=== PATIENT | female | born 1975 | race Caucasian/White ===

== ENCOUNTER 2024-01-27 23:55 | Observation (INO) | payer OTHER, SELFPAY ==
[2024-01-27 18:36] VITALS: BP 123/79
--- NOTE | 2024-01-27 18:53 | ED.GENMED ---
History of Present Illness
General
Chief Complaint: Skin Problem
Source: patient
Exam Limitations: none
Time Seen by Provider: 01/27/24 18:43
Travel History
Have you had any contact with someone who has COVID-19?: No
Do you have any symptoms of coronavirus? Fever > 100 degrees, chills, cough, shortness of breath, sore throat, loss of taste or smell, muscle aches, or headache?: No
History of Present Illness
History of Present Illness:
This is a 48 year old female that comes in with c/o rectal abscess. Stes that she has had 4 rectal abscesses in the past but this time she feels that this is very high up as she can't even palpate it. States that she is having trouble going to the
bathroom and even when she sits down to urinate just relaxing the muscles she had pain. States that she has been running a fever and last night she was 102.9 and it came down to 100. States that her abdomen feels distended and she is nauseated.
States that she also has a headache. States that she had chills last night with the fever but was no shaking. Denies chest pain, SOB, vomiting, diarrhea, dizziness, urinary burning.
Past History
Past History
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
ED Past Surgical History: Orthopedic (Carpal tunnel), Tonsilectomy and Other (Lumpectomy)
Social History
Tobacco: Former smoker
Alcohol: Occasional
Personal:
Living: with family
Review of Systems
Review of Systems
All Other Systems: ROS reviewed and negative except as documented in HPI and ROS
Constitutional: Reports fever and chills
EENT: Reports no symptoms
Respiratory: Reports no symptoms; Denies cough or trouble breathing
Cardiac: Reports no symptoms; Denies chest pain
ABD/GI: Reports abdominal pain (Feels bloated), nausea and other (Rectal pain); Denies vomiting or diarrhea
: Reports no symptoms; Denies dysuria, frequency or urgency
Musculoskeletal: Reports no symptoms
Skin: Reports no symptoms
Neurological: Reports headache; Denies dizzy
Psychiatric: Reports no symptoms
Phy Exam
General Physical Exam
General Presentation: no apparent distress
General age: appears stated age
General Skin: warm and dry
General Habitus: normal
General Mental: alert
General Hydration: dry mucous membranes
ENT Exam
ENT Exam: TM's normal, pharynx normal and neck supple
Eye Exam
Eye Exam: EOMI
Cardiovascular Exam
Cardiovascular Exam: regular rate/rhythm, no edema, no murmur and normal peripheral pulses
Pulmonary Exam
Pulmonary Exam: lungs clear, no respiratory distress, no rales, chest non tender, no crackles, no rhonchi, no wheezing and no cough
Gastrointestinal Exam
Gastrointestinal Exam: normal bowel sounds, non tender, soft, no organomegaly, no pulsatile mass, non distended and other (Rectal exam shows external hemorrhoids. Some excoriation of the rectal area. )
Musculoskeletal Exam
Musculoskeletal Exam: full ROM and no edema
Skin Exam
Skin Exam: normal color, warm/dry, no rash and no petechia
Psychiatric Exam
Psychiatric Exam: normal mood/affect
Course
Orders/Labs/Results
Orders:
Orders
01/27/24 18:52
0.9% Sodium Chloride 1000 ml [Nss] 1,000 ml IV BOLUS
Iohexol [Omnipaque] See Protocol PO NOW STA
01/27/24 18:53
CT Abd/pel W Iv And Oral Contr Urgent
Comment:
Reason For Exam: Rectal pain, feels she has an abscess
Test Result ONCE
01/27/24 18:56
Ondansetron Injectable [Zofran] 4 mg IV NOW STA
01/27/24 19:06
Complete Blood Count/With Diff Urgent
Comprehensive Metabolic Panel Urgent
HCG, Serum Qualitative Screen Urgent
Lactic Acid Urgent
Blood Culture Q30M
BLAINE Source: Blood/Venous
Specimen Description:
Blood Culture Q30M
BLAINE Source: Blood/Venous
Specimen Description:
01/27/24 20:25
COVID-19 Antigen Urgent
Source: Nasal Swab
Influenza A+B Rapid Molecular Urgent
BLAINE Source: Nasal Swab
Specimen Description:
01/27/24 23:17
HYDROmorphone [Dilaudid] 0.5 mg IV NOW STA
Ondansetron Injectable [Zofran] 4 mg IV NOW STA
Zosyn 3.375 grams IVPB NOW Piperacillin/Tazo 3.375 Gram [Zosyn] 3.375 gram in 50 ml IV NOW
Abnormal Lab Results
01/27/24
19:06
Abs Immat Gran (auto) 0.1 H 10^3/uL
(0-0.05)
Absolute Neuts (auto) 9.0 H 10^3/uL
(1.4-6.5)
Absolute Lymphs (auto) 0.4 L 10^3/uL
(1.2-3.4)
Absolute Monos (auto) 0.9 H 10^3/uL
(0.1-0.6)
Neutrophils % 84.6 H %
(42.2-75.2)
Lymphocytes % 3.5 L %
(20.5-51.1)
Sodium 134 L mmol/L
(135-145)
Glucose 130 H mg/dl
(70-99)
AST 80 H U/L
(14-36)
ALT 75 H U/L
(0-35)
01/27/24 19:06
01/27/24 19:06
Glucose nonfasting. AST/ALT elevation. HCG negative, Lactic acid normal at 0.9, COVID negative, Influenza negative.
Vital Signs
Initial and Last Documented VS:
Initial Vital Signs
Temp Pulse Resp BP Pulse Ox
98.9 F 103 17 123/79 99
01/27/24 18:36 01/27/24 18:36 01/27/24 18:36 01/27/24 18:36 01/27/24 18:36
Last Documented Vital Signs
Temp Pulse Resp BP Pulse Ox
98.9 F 98 18 121/74 99
01/27/24 18:36 01/27/24 19:28 01/27/24 19:28 01/27/24 19:28 01/27/24 19:28
MDM/Problems Addressed
Differential Diagnosis Includes:
Rectal abscess, Colitis,
MDM/Problems Addressed:
This is a 48 year old female that comes in with c/o rectal abscess. States that she has had 4 rectal abscess in the past but she feels that this one is high up as she is unable to palpate anything.
Will get labs and CT scan. Give IV fluids.
Back into see patient. Explained that the CT shows there is a rectal abscess. Message sent to Dr Munson as there is no obvious abscess noted on the outside of the rectum.
Will admit patient to Dr. Munson. Patient to be kept NPO and given IV antibiotics. 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 Will medicate patient for pain.
Chronic conditions affecting care:
History of rectal abscess.
Acute Exacerbation and/or Progression of Chronic Illness:
Rectal abscess
*Radiology
Radiology exam reviewed: radiology read reviewed (CT- There is right posterolateral low density perirectal fluid collection consistent with absces measuring approximately 3.7 X 2.8X 4.0cm in AP, transverse and craniocaudal dimensions respectively
and associated with moderate right perirectal and presacral edema/inflammatory changes. There is large) and other (CT cont- Volume of feces throughout the colon suggesting constipation. )
*Pulse Oximetry
Patient hypoxic: no
*EKG
Interpreted by ED Provider?: NA
Rate: EKG- N/A
*Treating Plant Operator Interpretation
Rate: Treating Plant Operator- N/A
*Critical Care Note
Total Time (30-74mins, 75-104mins- exclusive of procedures): Not Applicable
ED Attending Note
-
Portions of this chart may have been created with voice recognition software.� Occasional wrong word or��sound alike� substitutions may have occurred due to the inherent limitations of voice recognition software.
Discharge Plan
Departure
Patient Disposition: Admit
Date of Disposition: 01/27/24
Time of Disposition: 23:22
Admit to: Med/Surg
Presentation/result/management discussed w/ accepting MD/DO: Dr. Munson
Condition: Good
Covid-19: Not Applicable
Discharge Problem:
Rectal abscess
Referrals:
NONE,* [Family Provider] -
Interventions
Interventions:
*Risk Screen - Suicide Last Done: 01/27/24 18:43
*General Assessment Last Done: 01/27/24 18:43
*Neglect/Abuse Screening Last Done: 01/27/24 18:43
ED- Fall Risk Assessment Last Done: 01/27/24 18:43
*ED COVID-19 Vaccine History Last Done: 01/27/24 18:36
ED-Skin Assessment Last Done: 01/27/24 18:43
[2024-01-27 18:54] VITALS: BMI 23.3
[2024-01-27] MEDS: ZOFRAN 4 MG IV ×2 (19:06→23:22)
[2024-01-27] MEDS: OMNIPAQUE 50 ML PO (19:06)
[2024-01-27] MEDS: NSS 1000 IV (19:07)
[2024-01-27 19:26] LABS: % Basophils 0.4 % (0-2); % Eosinophils 2.2 % (0-6); % Immature Granulocytes 0.5 % (0-0.5); % Lymphocytes 3.5 % (20.5-51.1); % Monocytes 8.8 % (1.7-9.3); % Neutrophils 84.6 % (42.2-75.2); Absolute Eosinophils 0.2 10^3/uL (0-0.7); Absolute Immature Granulocytes 0.1 10^3/uL (0-0.05); Absolute Lymphocytes 0.4 10^3/uL (1.2-3.4); Absolute Monocytes 0.9 10^3/uL (0.1-0.6); Hematocrit 37.8 % (37.0-47.0); Hemoglobin 12.8 g/dL (12.0-16.0); Mean Corp Hgb Conc. 33.9 g/dL (33.0-37.0); Mean Corpuscular Hgb 28.8 pg (27.0-31.0); Mean Corpuscular Volume 85.1 fL (81.0-99.0); Mean Platelet Volume 9.9 fL (7.4-10.4); Nucleated Red Blood Cells % 0 %; Platelet Count 159 10^3/uL (130-400); Red Blood Cell Count 4.44 10^6/uL (4.20-5.40); Red Cell Dist. Width 13.2 % (11.5-14.5); White Blood Cell Count 10.7 10^3/uL (4.8-10.8)
[2024-01-27 19:28] VITALS: BP 121/74
[2024-01-27 19:37] LABS: HCG, Serum Qualitative Screen Negative; Lactic Acid 0.9 mmol/L (0.7-2.0)
[2024-01-27 19:40] LABS: ALT (SGPT) 75 U/L (0-35); AST (SGOT) 80 U/L (14-36); Albumin 3.8 g/dl (3.5-5.0); Alkaline Phosphatase 76 U/L (38-126); Blood Urea Nitrogen 11 mg/dl (7-17); Calcium 9.2 mg/dl (8.4-10.2); Carbon Dioxide 24 mmol/L (22-30); Chloride 104 mmol/L (98-107); Estimated Creatinine Clearance 77 ml/min; Glucose 130 mg/dl (70-99); Potassium 3.9 mmol/L (3.5-5.1); Sodium 134 mmol/L (135-145); Total Bilirubin 1.3 mg/dl (0.2-1.3); Total Protein 6.8 g/dl (6.3-8.2); eGFR > 60.00
[2024-01-27 20:48] LABS: COVID-19 Antigen Negative (Negative)
[2024-01-27] MEDS: DILAUDID 0.5 MG IV (23:24)
[2024-01-27] MEDS: ZOSYN 50 IV (23:27)
[2024-01-27 23:29] VITALS: BP 98/59
--- NOTE | 2024-01-27 23:46 | W.PN.UPDATE ---
Update Note
Progress Note Update
a 44 years old female present in ER with a complain of rectal pain. Patient has history of rectal abscess x 4 over 20 years ago, this time patient stated that she not able to feel the abscess as it too high to be palpated. Symptoms started last
Sunday with rectal pain, chills, fever, nausea, constipation, and feeling tired. Patient has difficulty to use bathroom or sitting down. Denies vomiting, urinary symptoms, SOB, chest pain or any other symptoms
[2024-01-27] MEDS: OFIRMEV 1000 MG IV (23:48)
[2024-01-28] VITALS (8 sets, daily range): BP systolic 11–107; BP diastolic 55–66; BMI 24.0
--- NOTE | 2024-01-28 00:29 | HPS.HSE ---
Addendum entered and electronically signed by Cm Keita MD 01/28/24 21:32:
I saw and examined the patient.
The PROFESSOR COMPUTER SCIENCE's note was reviewed and I agree with the note.
Comment:
48-year-old female with PMH of anxiety and prior perirectal abscesses (s/p incision and drainage x 4 over the last 20 years, last was 2019; states all abscesses were superficial and did not require any setons or fistulotomy's), who presents with 3
days of worsening perianal pain associated with nausea and fever of 103, WBC 10.7, CT showing 4.0 x 3.7 cm right-sided perirectal abscess, likely ischiorectal space (personally reviewed and interpreted by myself)
Overnight, Tmax 101.9, HR 80s
� Plan for OR for exam under anesthesia and incision and drainage with likely drain placement
� Continue n.p.o. with IVF
� Continue pain control with Tylenol and IV Dilaudid as needed
� Continue IV Zosyn
� OOB/IS
Dispo - depending on operative findings, likely will discharge this evening with pain control +/- abx
Original Note:
Family Physician
-
Family Physician: * NONE
Chief Complaint
-
Rectal pain
History of Present Illness
a 44 years old female present in ER with a complain of rectal pain. Patient has history of rectal abscess x 4 over 20 years ago. Patient mentioned that she was not able to feel the abscess as it too high to be palpated. Symptoms started last Sunday
with rectal pain, chills, fever, nausea, constipation, and feeling tired. Patient has difficulty to use bathroom or sitting down. Denies vomiting, urinary symptoms, SOB, chest pain or any other symptoms.
Medical History
Past Medical History
Past Medical History: Reports Psychiatric (anxiety) and Other (Rectal abscess x4 fistula )
Past Surgical History: Reports Orthopedic (Carpal tunnel ), Tonsilectomy and Other (Lumpectomy)
Social History
Tobacco: Former Smoker
Alcohol: Occasional
Drug: None
Personal:
Living: With Family
Employment: Other
Family History
Family History: Not pertinent
Allergies / Home Medications
Allergies reflects when Allergies were last updated in [facility].
Home Medications with original date entered in [facility]
Allergy/Medication List:
Home Medications Table - record
Medication Instructions Recorded Confirmed
loratadine 10 mg tablet (Claritin) 10 mg PO HS 01/28/24 01/28/24
sertraline 25 mg tablet (Zoloft) 25 mg PO HS 01/28/24 01/28/24
Patient Allergies
Allergy/AdvReac Type Severity Reaction Status Date / Time
No Known Allergies Allergy Unverified 01/27/24 18:34
Review of Systems
-
A 12 point ROS was completed and negative except as noted: Yes
Constitutional: Reports Fever, Fatigue and Chills
EENT: Reports No Symptoms
Respiratory: Reports No Symptoms
Cardiac: Reports No Symptoms
Abdomen/GI: Reports Nausea, Constipated and Pain (Rectal pain)
: Reports No Symptoms
Musculoskeletal: Reports No Symptoms
Skin: Reports No Symptoms
Neurological: Reports No Symptoms
Endocrine: Reports No Symptoms
Hematologic/Lymphatic: Reports No Symptoms
Psych: Reports Calm
Physical Exam
Vital Signs
Vital Signs
Temp Pulse Resp BP Pulse Ox
101.9 F H 98 16 98/59 94
01/27/24 23:29 01/27/24 23:29 01/27/24 23:29 01/27/24 23:29 01/27/24 23:29
Physical Exam
General: No Apparent Distress
Respiratory: Clear
Cardiac: Regular Rhythm
GI: Soft, Non Tender and Normal Bowel Sounds
Rectal: Red (excoriation to the rectal area with tenderness) and Hemorrhoids (external )
Musculoskeletal: No Edema
Neuro: Awake
Psych: Calm
Laboratory Results
-
01/27/24 19:06
01/27/24 19:
Laboratory Results
Lactic Acid 0.9 mmol/L (0.7-2.0) 01/27/24 19:06
Total Bilirubin 1.3 mg/dl (0.2-1.3) 01/27/24 19:
AST 80 U/L (14-36) H 01/27/24 19:06
ALT 75 U/L (0-35) H 01/27/24 19:06
Alkaline Phosphatase 76 U/L (38-126) 01/27/24 19:
Data Reviewed
-
CT Scan: Discussed with Patient
Impression/Plan
-
CT abdomen/plvs shows
1) There is right posterolateral low density perirectal fluid collection consistent with abscess measuring approximately 3.7 x 2.8 x 4.0 cm in AP, transverse and craniocaudal dimensions respectively and associated with moderate right perirectal and
presacral edema/inflammatory change.
2). There is large volume of feces throughout the colon suggesting constipation.
IMPRESSION:
Rectal abscess
PLAN:
Admit/ observation/ Med-surg (colorectal services Dr. Munson)
NPO
IVF
antiemetics
analgesics as needed
Abx Zosyn q 6hrs
Fever
Flu, covid done in ER (negative)
blood culture result is pending
Constipation
Laxatives as needed
Anxiety
C/W home meds Zoloft at hs
DVT prophylaxis Lovenox sq
Code status Full code
[2024-01-28] MEDS: NSS 1000 IV (01:58)
--- NOTE | 2024-01-28 02:53 | PTCARENOTE ---
Pt arrived onto floor @0125. Pt AAOx3, and was able to ambulate into room without assistance. Pt oriented to room and call nunez; will continue to monitor.
[2024-01-28] MEDS: DILAUDID 0.5 MG IV ×2 (03:31→08:52)
[2024-01-28] MEDS: ZOSYN 50 IV ×3 (05:01→18:22)
[2024-01-28] MEDS: TYLENOL 650 MG PO ×2 (05:13→09:28)
--- NOTE | 2024-01-28 12:26 | W.PN.CRS1 ---
Today's Communication / Plan
-
OR today
Assessment/Plan
-
right posterolateral perirectal abscess
1. Febrile, tmax 101.9. Slightly hypotensive 80/90's/50's.
2. Continue Zosyn IV.
3. Remain NPO.
4. OR today for perirectal abscess I+D.
Subjective Data
Subjective Data
Date of Service: January 28, 2024
Patient states she has rectal pain, constipation, fevers, and nausea. She has had several abscesses in the past.
Objective Data
-
Vital Signs
Temp Pulse Resp BP Pulse Ox
102.2 F H 104 16 103/60 99
01/28/24 08:40 01/28/24 08:40 01/28/24 08:40 01/28/24 08:40 01/28/24 08:40
Intake & Output
01/27/24 01/28/24 01/29/24
06:59 06:59 06:59
Intake Total 480 / 480
Balance 480 / 480
Intake:
IV fluids (Total) 480 / 480
Other:
Number of approximated SMALL 1
amounts of urine
Number of approximated MODERATE 2
amounts of urine
Lab Results
01/27/24 19:06
01/27/24 19:06
Physical Exam
-
General: No Acute Distress and AOx3
Abdomen: Soft, Non Distended and Non Tender
Rectal: Other (external hemorrhoids, posterior right area of fluctuance noted)
--- NOTE | 2024-01-28 17:34 | W.IMMPOSTOP ---
Addendum entered and electronically signed by Cm Keita MD 01/28/24 18:10:
Spoke with patient, still a little groggy; also spoke with Erendira's mother and updated her as well
Original Note:
Surgical Immed Post Op Note
-
Primary Surgeon: Cm Keita MD
Assisting Surgeon: None
Pre-op Diagnosis: Right�sided perirectal abscess
Post-op Diagnosis: Right�sided ischiorectal abscess
Procedure Performed: Exam under anesthesia, incision and drainage of right ischiorectal abscess, placement of Pezzer drain
Anesthesia Type: Local with MAC
Specimen / Cultures: Perirectal abscess (anaerobic and aerobic)
Estimated Blood Loss: 5 cc
Complications: None
Operative Findings: Deep ischiorectal abscess with about 20 cc of purulent fluid; irrigated and placed 16 English Pezzer drain
--- NOTE | 2024-01-28 17:42 | OR.RPT ---
Operative Report
Operative Report
DATE OF OPERATION: 01/28/2024
SURGEON: Cm Keita MD
PREOPERATIVE DIAGNOSIS: Right-sided perirectal abscess
POSTOPERATIVE DIAGNOSIS: Right-sided ischiorectal abscess
OPERATION: Exam under anesthesia, incision and drainage of right ischiorectal abscess, placement of Pezzer drain, bilateral pudendal nerve block
ASSISTANTS:
1. None
ANESTHESIA: MAC w/ local
ESTIMATED BLOOD LOSS: 5 mL
FINDINGS:
1. Fluctuance noted externally in right anterior position of about 1.5 cm from anal verge; finder needle confirmed purulent aspirate, sent for culture
2. I&D with evacuation of about 20 cc of pus from deep ischiorectal cavity; placed Pezzer drain
SPECIMENS:
1. Perirectal abscess
DRAINS: 16 [place] Pezzer drain
COMPLICATIONS: None
INDICATIONS: The patient is a 48-year-old female who presented with 2 days of perianal pain, CT scan showing 4 cm ischiorectal abscess. Patient has history of perirectal abscess and four prior I&D's. Therefore, I recommended that the patient have
surgery. The operation was discussed with the patient in detail, including the risks, benefits and alternatives. Risks described included, but not limited to bleeding, infection, damage to nearby structures such as the anal sphincter, fecal
incontinence, recurrence of abscess or formation of fistula, urinary retention, and anesthetic risks. The patient understood and agreed to proceed. The consent was signed and placed in the chart.
PROCEDURE IN DETAIL: The patient was taken to the operating room and placed on the operating table in prone position. Sequential compression devices were placed bilaterally. Sedation was commenced without complication. Two seat belts were secured
around the legs and upper back. The buttocks were taped apart. The perineum was prepped and draped in the usual fashion. A time-out was then performed verifying the correct patient, procedure, operative site, positioning, and special equipment.
Local anesthesia used was a mixture of 60 mL of 0.25% Marcaine without epinephrine (with epinephrine was on backorder) and 0.6 mg of dexamethasone. 40 mL was injected perianally at the beginning of the case. The anorectal exam was performed
assessing all four quadrants of the anal canal using Hill-Tellez retractors in progressively increasing size. Patient has multiple circumferential skin tags that are small and pendulous at the anal verge. Patient has a pendulous internal
hemorrhoid in the right posterior position that was not irritated or bleeding. No internal opening was obvious. A fluctuant area of about 1.5 cm was noted externally in the right anterior position about 1.5 cm from the anal verge. With palpation
of this fluctuant area, no purulent drainage was noted within the anal canal. I elected to leave the skin tags and internal hemorrhoids alone as the pathology causing her symptoms was clearly a perirectal abscess.
I used an 18-gauge needle with a 10 cc syringe to enter the fluctuant area and aspirate to confirm the location of the abscess. This resulted in an immediate withdrawal of 10 cc of pus. This was sent for anaerobic and aerobic cultures. Then a 1
cm elliptical incision was created at the level of the skin using Bovie electrocautery, oriented in a radial position, taking care to remain close to the anal verge. I dissected into the abscess cavity using hemostat clamps. Initially, I had
difficulty entering the abscess cavity. The 18-gauge needle with syringe was used again to confirm the correct trajectory into the abscess cavity. Another 10 cc was immediately aspirated. I continued dissecting deep into the ischiorectal space
and I encountered the abscess cavity. I used a finger to probe the cavity and break up any loculations. I checked for any obvious internal opening within the anal canal and none was located. The cavity was then irrigated with saline. Hemostasis
was confirmed. A 16 Burundian Pezzer drain was then placed within the cavity and secured to the perianal skin with a 2-0 nylon stitch.
The remaining 20 mL of local were injected. 5 mL was injected bilaterally for a pudendal nerve block. 10 mL was injected around the surgical site and perianally.
At this point, the procedure was complete. All needle, sponge and instrument counts were correct. The patient tolerated the procedure well and was transferred to the recovery room in stable condition with gauze dressing in place secured with silk
tape.
DICTATED BY: Cm Keita MD
--- NOTE | 2024-01-28 17:58 | PTCARENOTE ---
report called to [facility] pt. stable for transfer.
[2024-01-28] MEDS: NSS IV (18:22)
[2024-01-28] MEDS: LOVENOX 30 MG SC (18:22)
--- NOTE | 2024-01-28 18:29 | PTCARENOTE ---
Rec'd Pt back from OR- report taken from [facility] in PACU. Pt re-oriented to room with call nunez in place. TT to [place]-rectal surgery requesting diet order. Pt is for RUPINDER farfan.
--- NOTE | 2024-01-28 19:09 | PTCARENOTE ---
Pt given DC instructions. Pt verbalized understanding.
== END 2024-01-28 19:38 | disposition home or self-care (01) ==
LOC: 4 WEST ACU 23:55
PROVIDERS: Clinical Nurse Specialist Family Health; ADMITTING PHYSICIAN Surgery; EMERGENCY PHYSICIAN Emergency Medicine
DX: K61.39 Other ischiorectal abscess (principal); F41.9 Anxiety disorder, unspecified; R50.9 Fever, unspecified; R11.0 Nausea; K59.00 Constipation, unspecified; Z87.891 Personal history of nicotine dependence
CPT/HCPCS: 46040; 49406; 64430; 74177; 80053; 83605; 84703; 85025; 87040; 87070; 87075; 87077; 87147; 87205; 87502; 87811; 96361; 96365; 96375; 96376; 99285; G0378; Q9967

== ENCOUNTER → 2024-02-04 16:32 | Day surgery (SDC) | payer OTHER, SELFPAY ==
[2024-02-04] VITALS (12 sets, daily range): BP systolic 121–147; BP diastolic 72–101
--- NOTE | 2024-02-04 15:21 | HPS.HSE ---
Family Physician
-
Family Physician:
Chief Complaint
-
Acute perianal pain
History of Present Illness
48-year-old female with a past medical history of perirectal abscess presented to [facility] for acute perianal pain x [address] showed a 4 cm abscess WBC of 10.7 and fever of 103. She underwent an EUA, I&D, and placement of a Pezzer
drain on 01/28/[address] Keita. She was discharged that day with a 1 week course of Augmentin. She was seen at the clinic for a postop check. She has a hemorrhoid next to her drain that has been causing her significant amount of pain in the last
couple of days. She describes some drainage as light red and denies any green or yellow drainage. Given the appearance of the thrombosed external hemorrhoid on exam, it was advised by Dr. Keita that she go to the emergency room for lab work and
surgery later tonight.
Medical History
Past Medical History
Past Medical History: Reports Other (Depression, seasonal allergies, History of rectal abscesses with fistula)
Past Surgical History: Reports Orthopedic (Carpal tunnel repair), Tonsilectomy and Other (01/28/2024-and exam under anesthesia, incision and drainage, and placement of Pezzer drain)
Social History
Tobacco: Former Smoker
Alcohol: Occasional
Drug: None
Personal:
Family History
Family History: Not pertinent
Allergies / Home Medications
Allergies reflects when Allergies were last updated in [facility].
Home Medications with original date entered in [facility]
Allergy/Medication List:
Allergies: None
Medications:
Augmentin 875/125 mg p.o. twice daily
Dibucaine 1 application topical 3 times daily
Claritin 10 mg p.o. nightly
Zoloft 25 mg p.o. nightly
Tramadol 50 mg p.o. every 6 hours as needed pain
Review of Systems
-
History Source: Patient
A 12 point ROS was completed and negative except as noted: Yes
Abdomen/GI: Reports Diarrhea
: Reports Discharge and Other (Rectal pain and drainage)
Physical Exam
Vital Signs
Height 66 inches, weight 143 pounds, temperature 97.8
Physical Exam
General: Well Developed, Well Nourished and No Apparent Distress
Rectal: Other (No masses, thrombosed external hemorrhoid with breakdown of overlying interment small area of necrosis, no purulence, tender, no visible prolapse, Pezzer drain in place with no surrounding erythema or drainage)
Skin: Warm and Dry
Neuro: AO x 3
Psych: Calm
Laboratory Results
-
Labs are pending
Data Reviewed
-
Old Records: Reviewed
Impression/Plan
-
IMPRESSION:
48-year-old female with a history of a recent perianal abscess status post EUA, I&D, and placement Pezzer drain presents to the clinic as an outpatient complaining of some rectal pain and drainage and is found to have a large thrombosed external
hemorrhoid with a small area of necrosis
PLAN: Admit to colorectal surgery. She will undergo an EUA with external hemorrhoidectomy tonight. Remain NPO. Labs ordered.
[2024-02-04 16:01] LABS: % Eosinophils 2.9 % (0-6); % Immature Granulocytes 3.2 % (0-0.5); % Lymphocytes 25.7 % (20.5-51.1); % Monocytes 10.7 % (1.7-9.3); % Neutrophils 56.5 % (42.2-75.2); Absolute Basophils 0.1 10^3/uL (0-0.2); Absolute Eosinophils 0.3 10^3/uL (0-0.7); Absolute Immature Granulocytes 0.3 10^3/uL (0-0.05); Absolute Lymphocytes 2.2 10^3/uL (1.2-3.4); Absolute Monocytes 0.9 10^3/uL (0.1-0.6); Absolute Neutrophils 4.9 10^3/uL (1.4-6.5); Hematocrit 42.4 % (37.0-47.0); Hemoglobin 13.7 g/dL (12.0-16.0); Mean Corp Hgb Conc. 32.3 g/dL (33.0-37.0); Mean Corpuscular Hgb 28.4 pg (27.0-31.0); Mean Corpuscular Volume 87.8 fL (81.0-99.0); Mean Platelet Volume 9.8 fL (7.4-10.4); Nucleated Red Blood Cells % 0 %; Platelet Count 328 10^3/uL (130-400); Red Blood Cell Count 4.83 10^6/uL (4.20-5.40); Red Cell Dist. Width 13.6 % (11.5-14.5); White Blood Cell Count 8.7 10^3/uL (4.8-10.8)
[2024-02-04 16:15] LABS: ALT (SGPT) 69 U/L (0-35); AST (SGOT) 30 U/L (14-36); Albumin 4.1 g/dl (3.5-5.0); Alkaline Phosphatase 72 U/L (38-126); Blood Urea Nitrogen 26 mg/dl (7-17); Calcium 9.7 mg/dl (8.4-10.2); Carbon Dioxide 28 mmol/L (22-30); Chloride 102 mmol/L (98-107); Glucose 98 mg/dl (70-99); Potassium 4.8 mmol/L (3.5-5.1); Sodium 135 mmol/L (135-145); Total Bilirubin 0.4 mg/dl (0.2-1.3); Total Protein 7.3 g/dl (6.3-8.2); eGFR > 60.00
--- NOTE | 2024-02-04 17:32 | ED.GENMED ---
History of Present Illness
General
Chief Complaint: Anal/Rectal Problem
Source: patient
Exam Limitations: none
Time Seen by Provider: 02/04/24 17:25
Travel History
Have you had any contact with someone who has COVID-19?: No
Do you have any symptoms of coronavirus? Fever > 100 degrees, chills, cough, shortness of breath, sore throat, loss of taste or smell, muscle aches, or headache?: No
History of Present Illness
History of Present Illness:
48-year-old female presents with rectal pain. She was sent in from the colorectal office for thrombosed, gangrenous external hemorrhoid. She was here a week ago and had a perirectal abscess that was drained. She followed up in the office today to
have the drain removed and they noticed the tissue was necrotic and sent her in. She does complain of pain to the rectal area. No chest pain or shortness of breath. No fever. No other complaints
Past History
Past History
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
ED Past Surgical History: Orthopedic (Carpal tunnel), Tonsilectomy and Other (Lumpectomy)
Social History
Tobacco: Former smoker
Alcohol: Occasional
Personal:
Living: with family
Phy Exam
Physical Exam
Physical Exam:
General: Well-appearing female no acute respiratory distress
HEENT: Normocephalic atraumatic
Heart: Regular rate and rhythm no murmurs
Lungs: Clear no wheeze or rales
Abdomen soft nontender
Course
Orders/Labs/Results
Orders:
Orders
02/04/24 15:38
Complete Blood Count/With Diff Urgent
Comprehensive Metabolic Panel Urgent
Abnormal Lab Results
02/04/24
15:38
MCHC 32.3 L g/dL
(33.0-37.0)
Abs Immat Gran (auto) 0.3 H 10^3/uL
(0-0.05)
Absolute Monos (auto) 0.9 H 10^3/uL
(0.1-0.6)
Immature Gran % 3.2 H %
(0-0.5)
Monocytes % 10.7 H %
(1.7-9.3)
BUN 26 H mg/dl
(7-17)
ALT 69 H U/L
(0-35)
02/04/24 15:38
02/04/24 15:38
Vital Signs
Initial and Last Documented VS:
Initial Vital Signs
Temp Pulse Resp BP Pulse Ox
98.2 F 65 18 121/72 98
02/04/24 15:27 02/04/24 15:27 02/04/24 15:27 02/04/24 15:27 02/04/24 15:27
Last Documented Vital Signs
Temp Pulse Resp BP Pulse Ox
98.2 F 65 18 121/72 98
02/04/24 15:27 02/04/24 15:27 02/04/24 15:27 02/04/24 15:27 02/04/24 15:27
MDM/Problems Addressed
Differential Diagnosis Includes:
Patient known to colorectal service. Has known thrombosed external hemorrhoid with necrotic tissue. Labs drawn through triage have been reviewed which demonstrated normal white blood cell count. Colorectal made aware. She will be sent to the OR
*Critical Care Note
Total Time (30-74mins, 75-104mins- exclusive of procedures): Not Applicable
ED Attending Note
-
Portions of this chart may have been created with voice recognition software.� Occasional wrong word or��sound alike� substitutions may have occurred due to the inherent limitations of voice recognition software.
Discharge Plan
Departure
Patient Disposition: OR
Date of Disposition: 02/04/24
Time of Disposition: 17:34
Presentation/result/management discussed w/ accepting MD/DO: Michael
Discharge Problem:
External hemorrhoid, thrombosed
Interventions
Interventions:
*ED COVID-19 Vaccine History Last Done: 02/04/24 15:32
--- NOTE | 2024-02-04 17:44 | EDRN ---
OR Ready; transported by [facility]. Was in ER hallway for IV placement and transfer to OR who had pt scheduled.
[2024-02-04] MEDS: TORADOL 15 MG IV (19:27)
[2024-02-04] MEDS: TYLENOL 1000 MG PO (20:01)
--- NOTE | 2024-02-04 20:17 | OR.RPT ---
Operative Report
Operative Report
DATE OF OPERATION: 02/04/2020
SURGEON: Cm Keita MD
PREOPERATIVE DIAGNOSIS: Gangrenous thrombosed external hemorrhoid
POSTOPERATIVE DIAGNOSIS: Gangrenous thrombosed mixed internal/external hemorrhoid
OPERATION: Exam under anesthesia, open single-column hemorrhoidectomy, bilateral pudendal nerve block
ASSISTANTS:
1. None
ANESTHESIA: MAC w/ local
ESTIMATED BLOOD LOSS: 10 mL
FINDINGS:
1. Previously-placed Pezzer drain within ischiorectal cavity without any surrounding erythema or purulent drainage; drain removed
2. Thrombosed gangrenous internal/external hemorrhoid in the right posterior quadrant that was pendulous and mostly covered in anoderm; hemorrhoid excised and pedicle ligated
SPECIMENS:
1. None
DRAINS: None
COMPLICATIONS: None
INDICATIONS: The patient is a 48-year-old female who presented 1 week ago with a right-sided ischiorectal abscess that was incised and drained in the operating room. A Pezzer drain was placed. The patient followed up with me in the office today.
Initially, she improved, but developed a painful hemorrhoid adjacent to the drain. In the office, the hemorrhoid appeared to be a thrombosed external hemorrhoid with necrotic anoderm. Therefore, the patient was recommended to have surgery. The
operation was discussed with the patient in detail, including the risks, benefits and alternatives. Risks described included, but not limited to, bleeding, infection, damage to nearby structures such as the anal sphincter, fecal incontinence,
recurrence, urinary retention, and anesthetic risks. The patient understood and agreed to proceed. The consent was signed and placed in the chart.
PROCEDURE IN DETAIL: The patient was taken to the operating room and placed on the operating table in prone position. Sequential compression devices were placed bilaterally. Sedation was commenced without complication. Two seat belts were secured
around the legs and upper back. The buttocks were taped apart. The perineum was shaved, prepped and draped in the usual fashion. A time-out was then performed verifying the correct patient, procedure, operative site, positioning, and special
equipment.
Local anesthesia used was a mixture of 60 mL of 0.25% Marcaine without epinephrine (with epinephrine was on backorder) and 0.6 mg of dexamethasone. 40 mL was injected perianally at the beginning of the case. The anorectal exam was performed
assessing all four quadrants of the anal canal using Hill-Tellez retractors in progressively increasing size. The right-sided Pezzer drain was noted in place. There was no longer surrounding erythema and the drainage was serosanguineous. Upon
palpating the abscess cavity externally, no purulent drainage was expressed. The gangrenous thrombosed external hemorrhoid was in the right posterior position. It was pendulous. The stalk was primarily distal to the dentate line, but a small
portion was proximal, suggesting a mixed hemorrhoid. The remainder of the anal canal was without pathology. Skin tags were again noted at the anal verge. No other concerning internal or external hemorrhoids identified.
I elected to proceed with an excisional hemorrhoidectomy. I elevated the hemorrhoid using a Melonie clamp. Using Bovie electrocautery, I created an elliptical incision around the stalk to the level of the dentate line. I dissected the hemorrhoid off
of the internal sphincter meticulously, avoiding injury to the underlying sphincter. Once the hemorrhoid was off the sphincter, I excised the remaining stalk with electrocautery. Bleeding was noted from just proximal to the dentate line, likely
the feeding vessel to the hemorrhoid. Using 2 [id number] 3-0 Vicryl's, the hemorrhoid pedicle was ligated and hemostasis was achieved. The anal canal was irrigated and suctioned. The anal canal was evaluated once more in all 4 quadrants and
there was no further bleeding and no other concerning pathology. The base of the excised hemorrhoid was left open to decrease the risk of recurrent infection in the setting of a recent ischiorectal abscess. Next, the nylon stitch securing the
Pezzer drain was cut and the drain was removed without difficulty. The abscess cavity was irrigated and suctioned (the abscess cavity was significantly smaller and the Yankauer tip would not fit into the cavity at this point). Hemostasis was
confirmed. Surgicel was placed in the operative site prophylactically. At the end of the case, the remaining 20 mL of local were injected. 5 mL was injected bilaterally for a pudendal nerve block. 10 mL was injected around the surgical site and
perianally.
At this point, the procedure was complete. All needle, sponge and instrument counts were correct. The patient tolerated the procedure well and was transferred to the recovery room in stable condition with gauze dressing in place secured with silk
tape.
DICTATED BY: Cm Keita MD
== END | disposition home or self-care (01) ==
LOC: EMR 15:17 → SDS 16:32
PROVIDERS: ATTENDING PHYSICIAN Surgery; EMERGENCY PHYSICIAN Emergency Medicine
DX: K64.5 Perianal venous thrombosis (principal); K64.8 Other hemorrhoids; I96 Gangrene, not elsewhere classified
CPT/HCPCS: 46255; 88304; 80053; 85025; 99285